=== PATIENT | female | born 1955 | race Caucasian/White ===

== ENCOUNTER → 2017-12-12 12:08 | Outpatient (CLI) | payer OTHER, SELFPAY | PROVIDERS: Visit Provider Internal Medicine | DX: Z78.0 Asymptomatic menopausal state (principal); Z13.820 Encounter for screening for osteoporosis | CPT/HCPCS: 77080 ==

== ENCOUNTER → 2018-01-06 10:37 | Outpatient (CLI) | payer OTHER, SELFPAY ==
--- NOTE | 2018-01-06 | DI.MG.S_ITS ---
BILATERAL DIGITAL SCREENING MAMMOGRAM 3D/2D WITH CAD: 01/06/2018 CLINICAL: Routine screening. Family history of breast cancer. Comparison is made to exams dated: 05/13/2016 mammogram, 02/21/2015 mammogram, and 02/01/2014 mammogram - [facility]. The tissue of both breasts is heterogeneously dense. This may lower the sensitivity of mammography. Current study was also evaluated with a Computer Aided Detection (CAD) system. No significant masses, calcifications, or other findings are seen in either breast. There has been no significant interval change. IMPRESSION: NEGATIVE There is no mammographic evidence of malignancy. A 1 year screening mammogram is recommended. This exam was interpreted at Station ID: [id number]. NOTE: For mammograms, a report in lay terms will be sent to the patient. Approximately 15% of breast malignancies will not be visualized mammographically. In the management of a palpable breast mass, a negative mammogram must not discourage biopsy of a clinically suspicious lesion. Electronically Signed By: Garth nava/kristie:01/06/2018 14:55:16 copy to: Mounika Pedro letter sent: Normal Exam ACR BI-RADS Category 1: Negative 3341F
== END ==
PROVIDERS: PCP Internal Medicine; Visit Provider Internal Medicine
DX: Z12.31 Encounter for screening mammogram for malignant neoplasm of breast (principal); Z80.3 Family history of malignant neoplasm of breast
CPT/HCPCS: 77063; 77067

== ENCOUNTER 2018-02-17 11:48 | Day surgery (SDC) | payer OTHER, SELFPAY ==
[2018-02-17 12:27] VITALS: BP 118/77; PULSE 70; RESP 16; TEMP 36.6; O2SAT 95; BMI 30.9
[2018-02-17] MEDS: SODIUM CHLORIDE 0.9% 1,000 ML 200 ML IV (12:52)
--- NOTE | 2018-02-17 13:56 | PM.HP.1 ---
History of Present Illness Date Patient Seen: 02/17/18 Time Patient Seen: 13:59 Chief complaint: [id number] SCREENING COLONOSCOPY Narrative: Very pleasant 63-year-old lady who is here for screening colonoscopy. She reports her 1st colonoscopy was 5 years ago and she was diagnosed with benign polyp at that time. She denies any new problems or symptoms related to the function of her GI tract. She reports she needs a colonoscopy as part of a health maintenance program. Patient History Medical History Asthma (Chronic 2007) Depression (Chronic) Hyperlipidemia (Chronic) Hypothyroidism (Chronic) Peptic ulcer disease (Chronic 2001) Postmenopausal HRT (hormone replacement therapy) (Chronic) Sleep apnea (Chronic 2013) Abnormal Pap smear of cervix (Resolved) Arm fracture (Resolved ~1969) Measles (Resolved 1959) Mumps (Resolved 1960) Shingles (Resolved 2005) Surgical History Anesthesia (Resolved) History of ovarian cystectomy (Resolved) Family & Social History Family History: Reviewed 02/17/18 by Alessia Roland MD Social History: household members spouse Tobacco & Substance use: Smoking Status Never smoker Meds Home Medications Medication Instructions Recorded Confirmed Type [Ferrasorb] 1 cap PO Q DAY #0 03/22/16 01/05/18 History cholecalciferol (vitamin D3) 4,000 PO #0 11/11/16 01/05/18 History [Vitamin D3] calcium lactate #0 01/13/17 01/05/18 History estradiol-norethindrone acet 1 tab PO QDAY #28 tab 05/26/17 01/05/18 Rx [Activella] albuterol sulfate [Ventolin HFA] 2 puff INH SEE INSTRUCTIONS PRN #1 07/07/17 01/05/18 Rx inh fluoxetine 20 mg PO Q DAY #90 cap 07/07/17 01/05/18 Rx liothyronine [Cytomel] 5 mcg PO QAM #0 07/07/17 01/05/18 History levothyroxine 100 mcg PO QAM #30 tab 09/12/17 01/05/18 Rx clotrimazole 1 % vaginal cream 1 applicator VAG BEDTIME #45 gram 01/05/18 Rx fluconazole 150 mg tablet 150 mg PO ONCE #3 tab 02/03/18 Rx Allergies Allergy/AdvReac Type Severity Reaction Status Date / Time Sulfa (Sulfonamide Allergy Severe RASH Verified 02/17/18 12:50 Antibiotics) [SULFA (SULFONAMIDE ANTIBIOTICS)] pravastatin [PRAVASTATIN] AdvReac Intermediate JOINT PAIN Verified 02/17/18 12:50 simvastatin [SIMVASTATIN] AdvReac Intermediate JOINT PAIN Verified 02/17/18 12:50 erythromycin base AdvReac Mild GI UPSET Verified 02/17/18 12:50 [ERYTHROMYCIN BASE] pneumococcal vaccine AdvReac Mild REDNESS Verified 02/17/18 12:50 [PNEUMOCOCCAL VACCINE] AND SWELLNG AT INJECTION SITE Review of Systems Review of Systems All systems reviewed & are unremarkable except as noted in HPI and below Exam Vital Signs (past 8 hours): - 02/17/18 12:27 Temperature 97.8 F Pulse Rate 70 Respiratory Rate 16 Blood Pressure 118/77 Pulse Oximetry 95 Oxygen Delivery Method Room Air Narrative Exam Narrative: Pleasant well-nourished well-developed lady in no distress HEENT: Equal round and reactive to light accommodation Lungs: Clear to auscultation bilaterally Heart: Regular rate and rhythm Abdomen: Soft, nontender, active bowel sounds Extremities: Warm well perfused Assessment & Plan Plan: Assessment/Plan Narrative: Very pleasant well-nourished and well-developed lady in no distress. We discussed risks and benefits of colonoscopy and the patient expressed desire to complete the procedure today
--- NOTE | 2018-02-17 14:02 | P.HP_ITS ---
History of Present Illness Date Patient Seen: 02/17/18 Time Patient Seen: 13:59 Chief complaint: [id number] SCREENING COLONOSCOPY Narrative: Very pleasant 63-year-old lady who is here for screening colonoscopy. She reports her 1st colonoscopy was 5 years ago and she was diagnosed with benign polyp at that time. She denies any new problems or symptoms related to the function of her GI tract. She reports she needs a colonoscopy as part of a health maintenance program. Patient History Medical History Asthma (Chronic 2007) Depression (Chronic) Hyperlipidemia (Chronic) Hypothyroidism (Chronic) Peptic ulcer disease (Chronic 2001) Postmenopausal HRT (hormone replacement therapy) (Chronic) Sleep apnea (Chronic 2013) Abnormal Pap smear of cervix (Resolved) Arm fracture (Resolved ~1969) Measles (Resolved 1959) Mumps (Resolved 1960) Shingles (Resolved 2005) Surgical History Anesthesia (Resolved) History of ovarian cystectomy (Resolved) Family & Social History Family History: Reviewed 02/17/18 by Alessia Roland MD Social History: household members spouse Tobacco & Substance use: Smoking Status Never smoker Meds Home Medications Medication Instructions Recorded Confirmed Type [Ferrasorb] 1 cap PO Q DAY #0 03/22/16 01/05/18 History cholecalciferol (vitamin D3) 4,000 PO #0 11/11/16 01/05/18 History [Vitamin D3] calcium lactate #0 01/13/17 01/05/18 History estradiol-norethindrone acet 1 tab PO QDAY #28 tab 05/26/17 01/05/18 Rx [Activella] albuterol sulfate [Ventolin HFA] 2 puff INH SEE INSTRUCTIONS PRN #1 07/07/17 Rx inh fluoxetine 20 mg PO Q DAY #90 cap 07/07/17 01/05/18 Rx liothyronine [Cytomel] 5 mcg PO QAM #0 07/07/17 01/05/18 History levothyroxine 100 mcg PO QAM #30 tab 09/12/17 01/05/18 Rx clotrimazole 1 % vaginal cream 1 applicator VAG BEDTIME #45 gram 01/05/18 Rx fluconazole 150 mg tablet 150 mg PO ONCE #3 tab 02/03/18 Rx Allergies Allergy/AdvReac Type Severity Reaction Status Date / Time Sulfa (Sulfonamide Allergy Severe RASH Verified 02/17/18 12:50 Antibiotics) [SULFA (SULFONAMIDE ANTIBIOTICS)] pravastatin [PRAVASTATIN] AdvReac Intermediate JOINT PAIN Verified 02/17/18 12: 50 simvastatin [SIMVASTATIN] AdvReac Intermediate JOINT PAIN Verified 02/17/18 12: 50 erythromycin base AdvReac Mild GI UPSET Verified 02/17/18 12:50 [ERYTHROMYCIN BASE] pneumococcal vaccine AdvReac Mild REDNESS Verified 02/17/18 12:50 [PNEUMOCOCCAL VACCINE] AND SWELLNG AT INJECTION SITE Review of Systems Review of Systems All systems reviewed & are unremarkable except as noted in HPI and below Exam Vital Signs (past 8 hours): - 02/17/18 12:27 Temperature 97.8 F Pulse Rate 70 Respiratory Rate 16 Blood Pressure 118/77 Pulse Oximetry 95 Oxygen Delivery Method Room Air Narrative Exam Narrative: Pleasant well-nourished well-developed lady in no distress HEENT: Equal round and reactive to light accommodation Lungs: Clear to auscultation bilaterally Heart: Regular rate and rhythm Abdomen: Soft, nontender, active bowel sounds Extremities: Warm well perfused Assessment & Plan Plan: Assessment/Plan Narrative: Very pleasant well-nourished and well-developed lady in no distress. We discussed risks and benefits of colonoscopy and the patient expressed desire to complete the procedure today
[2018-02-17] MEDS: MIDAZOLAM 5 MG/5 ML VIAL IV (14:21)
[2018-02-17] MEDS: fentaNYL 250 MCG/5 ML INJ IV (14:22)
--- NOTE | 2018-02-17 14:29 | PM.OP.1 ---
Operative Date/Time/Diagnoses Date of procedure: 02/17/18 Time of procedure: 14:29 Procedure & Clinicians Procedure: Colonoscopy to the cecum Same procedure as scheduled: Yes Indications: Last colonoscopy 5 years ago Surgeon: Alessia Roland Click Yes if Unassisted: Yes Anesthesia Type: Sedation (Versed 5 mg; fentanyl 150 mcg) Operative Notes Findings: 1. Excellent prep 2. No polyps or mass lesions 3. No AV malformations 4. Minimal diverticulosis limited to the sigmoid region 5. Normal mucosa throughout without evidence of inflammation 6. Grade 1-2 internal hemorrhoids Closure Type: not applicable Procedure in detail: After obtaining informed consent, the patient was brought to the GI suite and placed in the left lateral decubitus position on the examination table. After placement of appropriate monitors, the patient was given incremental doses of Versed and Fentanyl until an appropriate level of sedation was achieved. A time out was held per SCOAP protocol. A digital rectal examination was performed and did not reveal any masses or obstructing lesions. The colonoscope was gently passed into the patient's anus and the entire colon navigated to the level of the cecum with minimal difficulty. Once in the cecum, the scope was withdrawn being sure to go before and beyond all mucosal folds and prominences and get an excellent examination. The findings are noted above. At the level of the rectal vault, the scope was retroflexed and the internal anal canal was examined. The scope was straightened and air aspirated from the colon. The instrument was removed from the patient's body and the procedure was concluded. The patient was allowed to awaken from sedation without difficulty and taken to the post-anesthesia care unit in good condition. Total sedation time 24 min Total withdrawal time 8 min 14 sec Complications: none Condition: stable Disposition: PACU Plan for aftercare: 1. Discharge home 2. Plan for next colonoscopy in 5 years or as clinically indicated
[2018-02-17 14:34] VITALS: BP 105/59; PULSE 65; RESP 10; TEMP 36.3; O2SAT 95
[2018-02-17 14:51] VITALS: BP 125/76; PULSE 62; RESP 13; TEMP 36.3; O2SAT 98
== END 2018-02-17 15:25 | disposition home or self-care (01) ==
PROVIDERS: PCP Internal Medicine; Visit Provider Surgery
PROC: 0DJD8ZZ Inspection of Lower Intestinal Tract, Via Natural or Artificial Opening Endoscopic (ICD-10-PCS; CPT 45378; principal; 2018-02-17 13:00)
DX: Z12.11 Encounter for screening for malignant neoplasm of colon (principal); Z86.010 Personal history of colon polyps; K57.30 Diverticulosis of large intestine without perforation or abscess without bleeding; K64.1 Second degree hemorrhoids; G47.33 Obstructive sleep apnea (adult) (pediatric); J45.909 Unspecified asthma, uncomplicated
CPT/HCPCS: 45378; 99152; 99153; J2250; J3010

== ENCOUNTER 2018-05-12 03:40 | Emergency (ER) | payer OTHER, SELFPAY ==
[2018-05-12 03:47] VITALS: BP 145/92; PULSE 64; RESP 16; TEMP 36.6; O2SAT 99; BMI 30.9
[2018-05-12 03:56] VITALS: BP 145/92; PULSE 64; RESP 16; TEMP 36.6; O2SAT 99; BMI 30.9
--- NOTE | 2018-05-12 04:19 | ED_ITS ---
HPI - Eye Problem General Chief complaint: Eye Problems Stated complaint: left eye pain like something is in it Time Seen by Provider: 05/12/18 03:50 Source: patient and family Mode of arrival: ambulatory Limitations: no limitations History of Present Illness HPI Narrative: 63-year-old female nonsmoker presents with her with a chief complaint of a sudden onset left eye pain this morning. She denies any injury, recent illness, recent UV exposure, welding or grinding.She denies any visual disturbance, visual field cuts or other. No floaters, flashers or blurring. She does not use contacts. She had LASIK surgery over the summer down in [place]. She routinely uses saline drops as directed by her ophtho. The drops contain no Preservatives and she has had this type of reaction a few times before when using which she describes as old drops chief complaint: eye pain and eye redness Onset (ago): hour(s) Onset description: sudden Duration: constant Location: left eye Eye Symptoms: redness and pain Place: home Mechanism: none Severity: mild If Pain, Quality: burning and aching Associated symptoms: none Treatments Prior to Arrival: none Related Data Patient tetanus UTD: Yes Home Medications Medication Instructions Recorded Confirmed [Ferrasorb] 1 cap PO Q DAY #0 03/22/16 03/05/18 cholecalciferol (vitamin D3) 4,000 PO #0 11/11/16 03/05/18 [Vitamin D3] Previous Rx's Medication Instructions Recorded estradiol-norethindrone acet 1 tab PO QDAY #28 tab 05/26/17 [Activella] albuterol sulfate [Ventolin HFA] 2 puff INH SEE INSTRUCTIONS PRN #1 07/07/17 inh fluoxetine 20 mg PO Q DAY #90 cap 07/07/17 levothyroxine 100 mcg tablet 100 mcg PO QAM #30 tab 04/21/18 Allergies Allergy/AdvReac Type Severity Reaction Status Date / Time Sulfa (Sulfonamide Allergy Severe RASH Verified 03/27/18 11:47 Antibiotics) [SULFA (SULFONAMIDE ANTIBIOTICS)] pravastatin [PRAVASTATIN] AdvReac Intermediate JOINT PAIN Verified 03/27/18 11: 47 simvastatin [SIMVASTATIN] AdvReac Intermediate JOINT PAIN Verified 03/27/18 11: 47 erythromycin base AdvReac Mild GI UPSET Verified 03/27/18 11:47 [ERYTHROMYCIN BASE] pneumococcal vaccine AdvReac Mild REDNESS Verified 03/27/18 11:47 [PNEUMOCOCCAL VACCINE] AND SWELLNG AT INJECTION SITE Review of Systems Review of Systems All systems reviewed & are unremarkable except as noted in HPI and below Constitutional Denies chills, Denies fever(s), Denies lethargy and Denies weakness Eyes Denies change in vision, Denies eye discharge, Reports irritation, Denies loss of vision and Reports eye pain ENT Ears, Nose, Mouth, and Throat: Denies change in voice, Denies neck pain and Denies sore throat Cardiovascular Denies dyspnea and Denies dyspnea on exertion Respiratory Denies cough, Denies dyspnea, Denies dyspnea on exertion and Denies wheezing Gastrointestinal Gastrointestinal: Denies abdominal pain, Denies change in bowel habits, Denies diarrhea, Denies nausea and Denies vomiting Musculoskeletal Denies neck pain Neurologic Denies confusion, Denies loss of vision and Denies weakness Psychiatric Denies anxiety, Denies confusion, Denies depression, Denies homicidal ideation and Denies suicidal ideation Allergic/Immunologic Denies wheezing [facility] Medical History Asthma (Chronic 2007) Depression (Chronic) Hyperlipidemia (Chronic) Hypothyroidism (Chronic) Peptic ulcer disease (Chronic 2001) Postmenopausal HRT (hormone replacement therapy) (Chronic) Sleep apnea (Chronic 2013) Abnormal Pap smear of cervix (Resolved) Arm fracture (Resolved ~1970) Measles (Resolved 1959) Mumps (Resolved 1960) Shingles (Resolved 2005) Surgical History Anesthesia (Resolved) History of ovarian cystectomy (Resolved) Family History Brother Age: 62 Hypertension Brother Age: 64 Prostate cancer Father Hypertension High cholesterol Stroke Asthma Grandmother Pneumonia Mother Age: 92 Asthma Hyperlipidemia Lymphatic leukemia Cancer Grandfather Cancer Lung cancer Grandmother Heart disease Family/Other Prediabetes Grandfather No problems noted. Grandmother Heart disease Social History household members: spouse Smoking Status: Never smoker Exam Narrative Exam Narrative: GEN: AOx3 and in mild distress EYES: Pupils are equal, round, and reactive to light and accommodation. Extraoccular muscles are intact bilaterally. Mild injection in L eye. No obvious foreign body noted, upper lid everted. Viewed with fluorescein under UV lamp and no dye uptake noted. Pressures measured with a Chuy-Pen and note 20 mmHg. No abnormalities noted on fundoscoping. Visual acuity noted in nursing chart (20/25 OS, OD, OU) CHEST: Lungs are clear to auscultation bilaterally and free of wheezes, rales, or rhonchi. Heart rate is regular rhythm, there are no murmurs, clicks, rubs, or gallops. There is no chest wall tenderness. ABD: Abdomen is soft and nontender. There is no guarding or rebound. Bowel sounds are normal in all 4 quadrants. There is no mass or organomegaly. EXT: Full painless ROM of all extremities with no loss of sensation or strength. SKIN: Warm, pink, and dry. No erythema or rash Initial Vital Signs Initial Vital Signs: Vital Signs Temperature 97.8 F 05/12/18 03:47 Pulse Rate 64 05/12/18 03:47 Respiratory Rate 16 05/12/18 03:47 Blood Pressure 145/92 H 05/12/18 03:47 Pulse Oximetry 99 05/12/18 03:47 Course Vital Signs - 8 hr 05/12/18 03:47 05/12/18 03:56 Temperature 97.8 F 97.8 F Pulse Rate 64 64 Respiratory Rate 16 16 Blood Pressure 145/92 H 145/92 H Pulse Oximetry 99 99 Discharge Plan Departure Patient Disposition: Home Clinical Impression: Acute left eye pain, Acute eye pain Discharge Date/Time: 05/12/18 04:24 Instructions: DI for Eye Pain Activity Restrictions/Additional Instructions: *You have been diagnosed with [ acute L eye pain ] *What to do: *continue to take medications as directed *Follow up with your eye doctor later today, call for an appointment. Let them know you were seen in the Emergency Department and that we ask that you be seen in follow up *Return to ER if you should have any new, worsening or concerning symptoms Prescriptions: No Action [Ferrasorb] 1 cap PO Q DAY Qty: 0 RF: 0 cholecalciferol (vitamin D3) [Vitamin D3] 4,000 UNIT capsule 4,000 PO Qty: 0 RF: 0 estradiol-norethindrone acet [Activella] 1 MG/0.5 MG tablet 1 tab PO QDAY Qty: 28 RF: 5 albuterol sulfate [Ventolin HFA] 90 MCG/PUFF HFA aerosol inhaler 2 puff INH SEE INSTRUCTIONS PRNQty: 1 RF: 1 fluoxetine 20 MG capsule 20 mg PO Q DAY Qty: 90 RF: 3 levothyroxine 100 mcg tablet 100 mcg PO QAM Qty: 30 RF: 0
[2018-05-12] MEDS: PROPARACAINE 0.5% OPHTH SOL 1 DROPS EYE-LEFT (04:23)
== END 2018-05-12 04:24 | disposition home or self-care (01) ==
LOC: ED 04:23
PROVIDERS: Emergency Provider Emergency Medicine; PCP Internal Medicine
DX: H57.12 Ocular pain, left eye (principal)
CPT/HCPCS: 99283

== ENCOUNTER → 2018-09-09 14:28 | Outpatient (CLI) | payer OTHER, SELFPAY ==
[2018-09-09 15:30] LABS: Add Manual Diff / Slide Review NO; Basophils Absolute Auto 0 /uL (0-100); Basophils Percent Auto 0.5 % (0-2); Eosinophils Absolute Auto 100 /uL (0-450); Eosinophils Percent Auto 1.7 % (2-4); Hematocrit 41.6 % (36-46); Lymphocytes Absolute Auto 2500 /uL (1100-4500); Lymphocytes Percent Auto 45.6 % (25-40); Mean Corpuscular HGB Conc 33.7 % (30-36); Mean Corpuscular Hemoglobin 30.6 PG (26-34); Monocytes Absolute Auto 400 /uL (0-900); Monocytes Percent Auto 7.1 % (3-14); Neutrophils Absolute Auto 2500 /uL (1500-7000); Neutrophils Percent Auto 45.1 % (50-75); Platelet Count 332 X10^3/uL (150-400); Red Blood Cell Count 4.57 X10^6/uL (4.0-5.2); White Blood Cell Count 5.6 X10^3/uL (4.5-11.0)
[2018-09-09 15:58] LABS: HEMOLYSIS < 15 (0-50); Iron 87 ug/dL (37-170)
[2018-09-09 16:09] LABS: Percent Iron Saturation 26 % (15-50); Total Iron Binding Capacity 340 ug/dL (265-497); Transferrin 273 mg/dL (206-381)
[2018-09-09 16:10] LABS: Alanine Aminotransferase 63 IU/L (9-52); Albumin 4.5 g/dL (3.5-5.0); Albumin Globulin Ratio 1.4 (1.0-2.8); Alkaline Phosphatase 58 U/L (38-126); Aspartate Aminotransferase 39 IU/L (14-36); BUN Creatinine Ratio 21.3 (6-22); Bilirubin Total 0.8 mg/dL (0.2-1.3); Blood Urea Nitrogen 17 mg/dL (7-17); Calcium 9.2 mg/dL (8.4-10.2); Carbon Dioxide 29 mmol/L (22-32); Chloride 101 mmol/L (98-107); Cholesterol 213 mg/dL (140-199); Estimated Glomerular Filt Rate > 60.0 mL/min (>60); Globulin 3.3 g/dL (1.7-4.1); Glucose 83 mg/dL (80-110); HDL Cholesterol 53 mg/dL (40-60); HEMOLYSIS < 15 (0-50); LDL Cholesterol Calculated 137 mg/dL (<100); Magnesium 2.1 mg/dL (1.6-2.3); Potassium 4.4 mmol/L (3.4-5.1); Sodium 140 mmol/L (137-145); Total Protein 7.8 g/dL (6.3-8.2); Triglycerides 115 mg/dL (35-150)
[2018-09-09 16:17] LABS: Free T3, Triiodothyronine Free 3.16 pg/mL (2.77-5.27); Free T4, Direct Thyroxine 1.22 ng/dL (0.78-2.19)
[2018-09-09 16:28] LABS: Vitamin D 25 Hydroxy (D3) 45.1 ng/mL (30.0-100.0)
[2018-09-09 16:31] LABS: Thyroid Stimulating Hormone 0.46 uIU/mL (0.47-4.68)
== END ==
PROVIDERS: PCP Student in an Organized Health Care Education/Training Program; Visit Provider Student in an Organized Health Care Education/Training Program
DX: E03.9 Hypothyroidism, unspecified (principal); E78.2 Mixed hyperlipidemia; E55.9 Vitamin D deficiency, unspecified; R25.2 Cramp and spasm; E61.1 Iron deficiency
CPT/HCPCS: 36415; 80053; 80061; 82306; 83540; 83550; 83735; 84439; 84443; 84481; 85025

== ENCOUNTER → 2018-12-08 14:34 | Outpatient (CLI) | payer OTHER, SELFPAY ==
[2018-12-08 18:40] LABS: Rheumatoid Factor < 8.6 IU/mL (<12.0)
[2018-12-11 09:38] LABS: Antinuclear Antibodies by IFA NEGATIVE
== END ==
PROVIDERS: PCP Student in an Organized Health Care Education/Training Program; Visit Provider Optometrist
DX: H16.223 Keratoconjunctivitis sicca, not specified as Sjogren's, bilateral (principal)
CPT/HCPCS: 36415; 86038; 86235; 86430

== ENCOUNTER 2018-12-30 06:08 | Emergency (ER) | payer OTHER, SELFPAY ==
--- NOTE | 2018-12-30 06:09 | ED_ITS ---
HPI - General Adult General Stated complaint: EYE PAIN SINCE 3 AM Time Seen by Provider: 12/30/18 06:09 Source: patient Mode of arrival: ambulatory Limitations: no limitations History of Present Illness HPI narrative: Sixty 3-year-old male with a history of dry eyes. He is currently under the care of an project consultant. He is using multiple lubricating creams and ointments and drops at home. States this occasionally happens where she wakes up in the morning and cannot get her eyes open because of pain and irritation. She states this is what happened to her this morning. She states that all she needs is a couple drops of the ?numbing medicine ?to help with the symptoms that she should be ?good to go ? Related Data Home Medications Medication Instructions Recorded Confirmed [Ferrasorb] 1 cap PO Q DAY #0 03/22/16 10/13/18 cholecalciferol (vitamin D3) 4,000 PO #0 11/11/16 10/13/18 [Vitamin D3] ibuprofen 200 mg capsule 200 mg PO QID PRN 09/08/18 10/13/18 Previous Rx's Medication Instructions Recorded albuterol sulfate [Ventolin HFA] 2 puff INH SEE INSTRUCTIONS PRN #1 07/07/17 inh levothyroxine 100 mcg tablet 100 mcg PO QAM #30 tab 09/28/18 fluoxetine 20 mg capsule 20 mg PO DAILY #90 cap 10/12/18 lorazepam 0.5 mg tablet 0.5 mg PO BID-TID PRN #60 tab 10/13/18 Allergies Allergy/AdvReac Type Severity Reaction Status Date / Time Sulfa (Sulfonamide Allergy Severe RASH Verified 10/13/18 10:54 Antibiotics) [SULFA (SULFONAMIDE ANTIBIOTICS)] pravastatin [PRAVASTATIN] AdvReac Intermediate JOINT PAIN Verified 10/13/18 10:54 simvastatin [SIMVASTATIN] AdvReac Intermediate JOINT PAIN Verified 10/13/18 10:54 erythromycin base AdvReac Mild GI UPSET Verified 10/13/18 10:54 [ERYTHROMYCIN BASE] pneumococcal vaccine AdvReac Mild REDNESS Verified 10/13/18 10:54 [PNEUMOCOCCAL VACCINE] AND SWELLNG AT INJECTION SITE Review of Systems Constitutional Denies fever(s) Eyes Reports blurry vision, Denies eye discharge, Reports dry eyes, Reports irritation and Reports eye pain ENT Ears, Nose, Mouth, and Throat: Denies sore throat Hematologic/Lymphatic Denies easy bleeding and Denies easy bruising Allergic/Immunologic Denies urticaria PFSH Medical History Asthma (Chronic 2007) Depression (Chronic) Hyperlipidemia (Chronic) Hypothyroidism (Chronic) Peptic ulcer disease (Chronic 2001) Postmenopausal HRT (hormone replacement therapy) (Chronic) Sleep apnea (Chronic 2013) Abnormal Pap smear of cervix (Resolved) Arm fracture (Resolved ~1969) Measles (Resolved 1959) Mumps (Resolved 1960) Shingles (Resolved 2005) Family History Brother Age: 62 Hypertension Brother Age: 64 Prostate cancer Father Hypertension High cholesterol Stroke Asthma Grandmother Pneumonia Mother Age: 92 Asthma Hyperlipidemia Lymphatic leukemia Cancer Grandfather Cancer Lung cancer Grandmother Heart disease Family/Other Prediabetes Grandfather No problems noted. Grandmother Heart disease Social History household members: spouse Smoking Status: Former smoker Exam Initial Vital Signs Initial Vital Signs: Vital Signs Temperature 98.0 F 12/30/18 06:14 Pulse Rate 63 12/30/18 06:14 Respiratory Rate 18 12/30/18 06:14 Blood Pressure 195/84 H 12/30/18 06:14 Pulse Oximetry 98 12/30/18 06:14 Const General: cooperative and No acute distress Orientation: alert and awake HENMT Head: normal to inspection and normocephalic Eyes Other: Bilateral eyes with scleral injection, red conjunctiva without drainage. No surrounding skin changes. No uptake with fluorescein staining bilateral. Resp Effort & Inspection: normal respiratory effort Cardio Rate: regular rate Skin Lesions: no lesions Rashes: no rashes Neuro General: alert, awake and oriented x3 Course Vital Signs - 8 hr 12/30/18 06:14 Temperature 98.0 F Pulse Rate 63 Respiratory Rate 18 Blood Pressure [Right Arm] 195/84 H Pulse Oximetry 98 Medical Decision Making MDM Narrative Medical decision making narrative: Patient states that the pain in her eyes a secondary to the year today barraza. She does have foreign body sensation which she states there is nothing in her eye. She states this is just irritation from her dry eyes that occasionally happens. I did use the proparacaine drops which improved her symptoms tremendously. There is no signs of foreign body or corneal abrasions with fluorescein. She does have a project consultant that she sees on a regular basis. Will have her contact her project consultant for follow-up. She expressed understanding and agreement with plan. Discharge Plan Departure Patient Disposition: Home Clinical Impression: Bilateral dry eyes Instructions: DI for Eye Pain Activity Restrictions/Additional Instructions: I recommend you contact your project consultant later today for any further recommendations with regard to your dry eyes. Continue all of your medications as directed. Return to the emergency department for any new or worsening symptoms Prescriptions: No Action [Ferrasorb] 1 cap PO Q DAY Qty: 0 RF: 0 cholecalciferol (vitamin D3) [Vitamin D3] 4,000 UNIT capsule 4,000 PO Qty: 0 RF: 0 albuterol sulfate [Ventolin HFA] 90 MCG/PUFF HFA aerosol inhaler 2 puff INH SEE INSTRUCTIONS PRNQty: 1 RF: 1 levothyroxine 100 mcg tablet 100 mcg PO QAM Qty: 30 RF: 5 fluoxetine 20 mg capsule 20 mg PO DAILY Qty: 90 RF: 1 ibuprofen 200 mg capsule 200 mg PO QID PRNRF: 0 lorazepam 0.5 mg tablet 0.5 mg PO BID-TID PRN (Reason: anxiety) Qty: 60 RF: 0 Referrals: Sonu Albright MD [Primary Care Provider] -
[2018-12-30 06:14] VITALS: BP 195/84; PULSE 63; RESP 18; TEMP 36.7; O2SAT 98
[2018-12-30 06:31] VITALS: PULSE 63; RESP 18; TEMP 36.7; O2SAT 98
--- NOTE | 2018-12-30 06:34 | PC.NURSE ---
Unable to obtain visual acuity,she had been given alcaine BY prior to my exam and was very light sensitive.
== END 2018-12-30 06:44 | disposition home or self-care (01) ==
PROVIDERS: Emergency Provider Emergency Medicine; PCP Student in an Organized Health Care Education/Training Program
DX: H04.123 Dry eye syndrome of bilateral lacrimal glands (principal)
CPT/HCPCS: 99282

== ENCOUNTER → 2019-01-07 15:48 | Outpatient (CLI) | payer OTHER, SELFPAY ==
--- NOTE | 2019-01-07 | DI.MG.S_ITS ---
BILATERAL DIGITAL SCREENING MAMMOGRAM 3D/2D WITH CAD: 01/07/2019 CLINICAL: Routine screening. Family history of breast cancer. Comparison is made to exams dated: 01/06/2018 mammogram, 05/13/2016 mammogram, and 02/21/2015 mammogram - [facility]. The tissue of both breasts is heterogeneously dense. This may lower the sensitivity of mammography. Current study was also evaluated with a Computer Aided Detection (CAD) system. There is a mole marker on the right breast. There are mole markers on the left breast. No significant masses, calcifications, or other findings are seen in either breast. There has been no significant interval change. IMPRESSION: NEGATIVE There is no mammographic evidence of malignancy. A 1 year screening mammogram is recommended. This exam was interpreted at Station ID: [id number]. NOTE: For mammograms, a report in lay terms will be sent to the patient. Approximately 15% of breast malignancies will not be visualized mammographically. In the management of a palpable breast mass, a negative mammogram must not discourage biopsy of a clinically suspicious lesion. Electronically Signed By: Darwin foster/kristie:01/08/2019 07:24:17 copy to: Bassam Brooks letter sent: Normal Exam ACR BI-RADS Category 1: Negative 3341F
== END ==
PROVIDERS: PCP Student in an Organized Health Care Education/Training Program; Visit Provider Student in an Organized Health Care Education/Training Program
DX: Z12.31 Encounter for screening mammogram for malignant neoplasm of breast (principal); Z80.3 Family history of malignant neoplasm of breast
CPT/HCPCS: 77063; 77067

== ENCOUNTER → 2019-08-14 08:28 | Outpatient (CLI) | payer OTHER, SELFPAY ==
[2019-08-14 09:15] LABS: Influenza A - CEPHEID Flu A NEGATIVE (NEGATIVE); Influenza B - CEPHEID Flu B NEGATIVE (NEGATIVE)
== END ==
PROVIDERS: PCP Student in an Organized Health Care Education/Training Program; Visit Provider Physician Assistant
DX: R05 Cough (principal)
CPT/HCPCS: 87502

== ENCOUNTER → 2020-02-08 19:26 | Outpatient (ROUT) | payer OTHER, SELFPAY ==
[2020-02-08 20:32] LABS: Erythrocyte Sedimentation Rate 8 MM/HR (0-20)
[2020-02-08 20:35] LABS: C-Reactive Protein Quant < 0.5 mg/dL (<1.0); Rheumatoid Factor < 8.6 IU/mL (<12.0)
[2020-02-11 19:38] LABS: ANA Screen, IFA Negative (.)
[2020-02-11 21:11] LABS: CCP Antibodies IgG/IgA 8 units (0-19)
== END ==
PROVIDERS: PCP Student in an Organized Health Care Education/Training Program; Visit Provider Internal Medicine
DX: M35.00 Sjogren syndrome, unspecified (principal)
CPT/HCPCS: 85651; 86038; 86140; 86200; 86430

== ENCOUNTER → 2020-03-10 09:29 | Outpatient (CLI) | payer OTHER, SELFPAY ==
--- NOTE | 2020-03-10 | DI.RAD.S_ITS ---
PROCEDURE: XR HAND LT 2V INDICATIONS: Pain is greatest in Rt thumb base TECHNIQUE: 2 views of the hand(s) acquired. COMPARISON: None. FINDINGS: Bones: No fractures or dislocations. Carpal bones are normally aligned. No suspicious bony lesions. Overall mild degenerative osteoarthritis is present, less than that seen on the right. Soft tissues: No suspicious soft tissue calcifications. IMPRESSION: Mild distal interphalangeal degenerative osteoarthritis, no erosive arthritis is found. Mild degeneration at the base of the 1st metacarpal. Dictated by: Tl Moreau M.D. on 03/10/2020 at 10:30 Approved by: Tl Moreau M.D. on 03/10/2020 at 10:31
--- NOTE | 2020-03-10 | DI.RAD.S_ITS ---
PROCEDURE: XR HAND RT 2V INDICATIONS: Pain is greatest in Rt thumb base TECHNIQUE: 2 views of the hand(s) acquired. COMPARISON: None. FINDINGS: Bones: No fractures or dislocations. Mild osteoarthritis at the distal interphalangeal joints. Moderate degenerative osteoarthritis at the base of the 1st metacarpal. No erosive arthritis. Carpal bones are normally aligned. No suspicious bony lesions. Soft tissues: No suspicious soft tissue calcifications. IMPRESSION: Degenerative osteoarthritis is present over the right hand, mild at the distal interphalangeal joints and moderate at the base of the 1st metacarpal. Dictated by: lT Moreau M.D. on 03/10/2020 at 10:27 Approved by: Tl Moreau M.D. on 03/10/2020 at 10:29
== END ==
PROVIDERS: PCP Internal Medicine; Referring Provider Internal Medicine; Visit Provider Internal Medicine
DX: M79.644 Pain in right finger(s) (principal); M19.042 Primary osteoarthritis, left hand; M19.041 Primary osteoarthritis, right hand
CPT/HCPCS: 73120; 87070; 87205

== ENCOUNTER → 2020-04-08 08:12 | Outpatient (CLI) | payer OTHER, SELFPAY ==
--- NOTE | 2020-04-08 | DI.MG.S_ITS ---
BILATERAL DIGITAL SCREENING MAMMOGRAM 3D/2D WITH CAD: 04/08/2020 CLINICAL: Routine screening. Family history of breast cancer. Comparison is made to exams dated: 01/07/2019 mammogram, 01/06/2018 mammogram, and 05/13/2016 mammogram - [facility]. The tissue of both breasts is heterogeneously dense. This may lower the sensitivity of mammography. Current study was also evaluated with a Computer Aided Detection (CAD) system. No significant masses, calcifications, or other findings are seen in either breast. There has been no significant interval change. IMPRESSION: NEGATIVE There is no mammographic evidence of malignancy. A 1 year screening mammogram is recommended. This exam was interpreted at Station ID: [id number]. NOTE: For mammograms, a report in lay terms will be sent to the patient. Approximately 15% of breast malignancies will not be visualized mammographically. In the management of a palpable breast mass, a negative mammogram must not discourage biopsy of a clinically suspicious lesion. Electronically Signed By: Akin wilson/kristie:04/10/2020 07:57:28 copy to: Bassam Brooks letter sent: Normal Exam ACR BI-RADS Category 1: Negative 3341F
== END ==
PROVIDERS: PCP Internal Medicine; Referring Provider Internal Medicine; Visit Provider Internal Medicine
DX: Z12.31 Encounter for screening mammogram for malignant neoplasm of breast (principal); Z80.3 Family history of malignant neoplasm of breast
CPT/HCPCS: 77063; 77067

== ENCOUNTER → 2021-04-26 08:07 | Outpatient (CLI) | payer MEDICARE, OTHER, SELFPAY ==
--- NOTE | 2021-04-26 | DI.MG.S_ITS ---
BILATERAL DIGITAL SCREENING MAMMOGRAM 3D/2D WITH CAD: 04/26/2021 CLINICAL: Routine screening. Family history of breast cancer. Comparison is made to exams dated: 04/08/2020 mammogram, 01/07/2019 mammogram, and 01/06/2018 mammogram - [facility]. The tissue of both breasts is heterogeneously dense. This may lower the sensitivity of mammography. Current study was also evaluated with a Computer Aided Detection (CAD) system. No significant masses, calcifications, or other findings are seen in either breast. There has been no significant interval change. IMPRESSION: NEGATIVE There is no mammographic evidence of malignancy. A 1 year screening mammogram is recommended. This exam was interpreted at Station ID: [id number]. NOTE: For mammograms, a report in lay terms will be sent to the patient. Approximately 15% of breast malignancies will not be visualized mammographically. In the management of a palpable breast mass, a negative mammogram must not discourage biopsy of a clinically suspicious lesion. Electronically Signed By: Garrison villalba/kristie:04/26/2021 08:49:32 copy to: Bassam Brooks letter sent: Normal Exam ACR BI-RADS Category 1: Negative 3341F
== END ==
PROVIDERS: PCP Family Medicine; Referring Provider Family Medicine; Visit Provider Family Medicine
DX: Z12.31 Encounter for screening mammogram for malignant neoplasm of breast (principal); Z80.3 Family history of malignant neoplasm of breast
CPT/HCPCS: 77063; 77067

== ENCOUNTER 2021-06-02 07:15 | Emergency (ER) | payer MEDICARE, OTHER, SELFPAY ==
[2021-06-02 07:27] VITALS: BP 169/81; PULSE 75; RESP 18; TEMP 36.7; O2SAT 96; BMI 28.3
[2021-06-02] MEDS: PROPARACAINE 0.5% OPHTH SOL 1 DROPS EYE-BOTH (07:30)
--- NOTE | 2021-06-02 07:38 | ED.EYEPROB ---
HPI - Eye Problem General Chief complaint: Eye Problems Stated complaint: left eye pain Time Seen by Provider: 06/02/21 07:20 Source: patient Mode of arrival: Ambulatory History of Present Illness HPI Narrative: The patient is under ophthalmology care for dry eyes. She has chronic discomfort in her eyes, she currently uses Restasis and Celluvisc prescribed by Dr. Alicea as with [facility]. She woke this morning with her eyes dry, almost sealed shut. She has significant eye discomfort. This happens occasionally. She is being seen here previously and received relief with proparacaine. She has previously been on Xiidra drops. These are expensive, unfortunately her insurance company will not cover this medication. She felt that medication offered much greater relief. She is here now eye pain requesting numbing drops. She has no significant visual changes. Intra-ocular pressures are moderate, and she has never had issue with glaucoma. Pain is consistent with prior such exacerbations. She denies URI symptoms. She has no rhinorrhea, sore throat, cough or fever. Related Data Home Medications Medication Instructions Recorded Confirmed ibuprofen 200 mg capsule 200 mg PO QID PRN 09/08/18 08/14/19 lifitegrast 5 % eye drops in a EYE-BOTH DAILY each 02/19/19 08/14/19 dropperette (Xiidra) Previous Rx's Medication Instructions Recorded albuterol sulfate 90 mcg/actuation 2 puff INH SEE INSTRUCTIONS PRN #1 07/07/17 aerosol inhaler (Ventolin HFA) inh fluoxetine 20 mg capsule 20 mg PO DAILY #90 cap 05/18/19 levothyroxine 100 mcg tablet 100 mcg PO QAM #90 tab 08/17/19 Allergies Allergy/AdvReac Type Severity Reaction Status Date / Time Sulfa (Sulfonamide Allergy Severe RASH Verified 08/14/19 08:20 Antibiotics) [SULFA (SULFONAMIDE ANTIBIOTICS)] pravastatin [PRAVASTATIN] AdvReac Intermediate JOINT PAIN Verified 08/14/19 08:20 simvastatin [SIMVASTATIN] AdvReac Intermediate JOINT PAIN Verified 08/14/19 08:20 erythromycin base AdvReac Mild GI UPSET Verified 08/14/19 08:20 [ERYTHROMYCIN BASE] pneumococcal vaccine AdvReac Mild REDNESS Verified 08/14/19 08:20 [PNEUMOCOCCAL VACCINE] AND SWELLNG AT INJECTION SITE Review of Systems Review of Systems ROS Unobtainable: All systems reviewed & are unremarkable except as noted in HPI and below Patient History Medical History (Updated 06/02/21 @ 08:07 by Bassam Talley MD) Abnormal Pap smear of cervix Arm fracture (~1969) Asthma (2007) Depression Dry eyes Hyperlipidemia Hypothyroidism Measles (1959) Mumps (196) Obstructive sleep apnea (~2013) Peptic ulcer disease (2001) Postmenopausal HRT (hormone replacement therapy) Shingles (2005) Viral syndrome Surgical History Anesthesia History of ovarian cystectomy Family History Brother Age: 65 Hypertension Brother Age: 67 Prostate cancer Father Hypertension High cholesterol Stroke Asthma Grandmother Pneumonia Mother Age: 95 Asthma Hyperlipidemia Lymphatic leukemia Cancer Grandfather Cancer Lung cancer Grandmother Heart disease Family/Other Prediabetes Grandfather No problems noted. Grandmother Heart disease Social History household members: spouse Smoking Status: Former smoker Smoking Status: Former smoker alcohol intake frequency: a few times a month Substance Use Type: does not use Exam Initial Vital Signs Initial Vital Signs: Vital Signs Temperature 98.1 F 06/02/21 07:27 Pulse Rate 75 06/02/21 07:27 Respiratory Rate 18 06/02/21 07:27 Blood Pressure 169/81 H 06/02/21 07:27 Pulse Oximetry 96 06/02/21 07:27 Const General: cooperative and healthy appearing [facility] Head: normal to inspection, normocephalic and atraumatic Nose: external nose normal and mucous membranes and turbinates abnormal Face and sinus: normal facial exam and sinuses nontender Mouth: oral mucosae normal Eyes Periorbital: periorbital findings normal Eyelids: eyelids normal Conjunctivae: conjunctival abnormality bilaterally conjunctival injection; Negative for without discharge Sclera: sclerae normal Cornea: corneas normal Pupils: PERRL and pupil size on the right 4 and on the left 4 EOM: EOM intact bilaterally Direct ophthalmoscopy: fundi normal bilaterally and photophobia Other: Visual acuity: 20/25 OD, 20/20 OS, 20/20 OU. Neck Neck: normal visual inspection and No lymphadenopathy Course Orders Ordered: Discontinued Medications Acetaminophen (Acetaminophen 325 Mg Tablet) 650 mg PO NOW ONE Stop: 06/02/21 07:52 Last Admin: 06/02/21 07:54 Dose: 650 mg Documented by: Proparacaine HCl (Proparacaine 0.5% Ophth Gemma) 1 drops EYE-BOTH NOW ONE Stop: 06/02/21 07:27 Last Admin: 06/02/21 07:30 Dose: 1 drop Documented by: SUSAN Vital Signs Vital signs: Vital Signs - 8 hr 06/02/21 07:27 Temperature 98.1 F Pulse Rate 75 Respiratory Rate 18 Blood Pressure 169/81 H Pulse Oximetry 96 MDM - Eye Problem Medical Records Medical records narrative: The patient received significant relief with proparacaine. She is given Tylenol and warm compresses. She was discharged home feeling improved. She is advised to follow-up with her economic development manager. Discharge Plan Departure Patient Disposition: Home Clinical Impression: Eye pain Instructions: DI for Eye Pain Activity Restrictions/Additional Instructions: Your exam suggests viral conjunctivitis, or perhaps iritis. However, your medical history implies that the irritation I am seeing is associated with your chronic issue with dry eyes. Continue current medications as prescribed. I recommend you contact your economic development manager office this morning, in case there is emergency coverage. Otherwise, contact your economic development manager office on Friday morning. Return here if necessary. Prescriptions: No Action albuterol sulfate [Ventolin HFA] 90 MCG/PUFF HFA aerosol inhaler 2 puff INH SEE INSTRUCTIONS PRNQty: 1 1RF fluoxetine 20 mg capsule 20 mg PO DAILY Qty: 90 1RF levothyroxine 100 mcg tablet 100 mcg PO QAM Qty: 90 3RF ibuprofen 200 mg capsule 200 mg PO QID PRN0RF Xiidra 5 % dropperette EYE-BOTH DAILY 0RF Referrals: Paul Noe MD [Primary Care Provider] -
[2021-06-02] MEDS: ACETAMINOPHEN 325 MG TABLET 650 MG PO (07:54)
== END 2021-06-02 08:05 | disposition home or self-care (01) ==
PROVIDERS: Emergency Provider Emergency Medicine; PCP Family Medicine
DX: H57.13 Ocular pain, bilateral (principal); Z87.891 Personal history of nicotine dependence
CPT/HCPCS: 99282

== ENCOUNTER 2023-05-28 09:27 | Day surgery (SDC) | payer MEDICARE, OTHER, SELFPAY ==
--- NOTE | 2023-05-28 | PATH_ITS ---
[facility] Accession Number: [id number] No. of containers..01 Tissue . 01 Material submitted: . duodenum - DUODENUM BIOPSY . 01 Diagnosis: Duodenum, Biopsy: Duodenal mucosa with mildly increased intraepithelial lymphocytes and foveolar metaplasia; please see comment. [facility] 06/10/2023 1110 Local . 01 Comment: The histologic findings raise a differential diagnosis including peptic duodenitis, NSAID induced injury, and in the appropriate clinical and serological setting, celiac sprue. . 01 Electronically signed: . Delbert Morales MD, PhD, Pathologist NPI- [id number] . 01 Gross description: . DUODENUM BIOPSY: Received in formalin is 1 fragment(s) of santos, soft tissue measuring 0.4 x 0.2 x 0.1 cm submitted entirely in 1 cassette(s) /AAY 05/29/2023 0532 Local . 01 Pathologist provided ICD-10: D50.0, K29.80 . 01 CPT . 955190 Specimen Comment: A courtesy copy of this report has been sent to [phone] Performed at: 01 [facility] [address] [place] [address], [place], [place] [id number] MD Akin Arnett MD Phone: [phone]
[2023-05-28 09:53] VITALS: BMI 24.9
[2023-05-28 10:00] VITALS: BP 122/76; PULSE 69; RESP 16; TEMP 36.4; O2SAT 97
--- NOTE | 2023-05-28 10:09 | PM.PREOP ---
Pre-operative Note COVID-19 COVID-19 status: Negative Interval Note History & Physical reviewed/Exam performed by Physician: Yes Changes to H&P: No ASA Class (for procedural sedation): II
--- NOTE | 2023-05-28 10:09 | PM.OP.EC ---
Operative Date/Time/Diagnoses Date of procedure: 05/28/23 Pre-op diagnosis: See indication and findings Procedure & Clinicians Study performed: EGD and colonoscopy Indications: Iron deficiency anemia Surgeon: Deirdre Reynolds Procedure Notes Procedure in detail: After informed consent was obtained the patient was placed in the left lateral decubitus position. The video upper scope was placed into the oropharynx and with the patient's help swallowed into the esophagus. The esophagus stomach and duodenum were carefully examined. On withdrawal, retroflexed view the GE junction was performed. The scope was removed. The patient tolerated procedure well. Patient was then turned to the scope colonoscope substituted. The scope was placed in the rectum slowly advanced cecum. Preparation was good. On slow withdrawal mucosa was carefully examined. The scope was removed. The patient tolerated procedure well. Blood loss none Complications none Sedation mac Findings EGD 1. Normal esophagus 2. Normal stomach 3. Normal duodenal bulb and sweep. Biopsies taken to rule out celiac Colonoscopy 1. Normal colonoscopy to cecum I expect that her small bowel biopsies will be normal in which she she will need to be scheduled for a [facility] the of the office/endoscopy center. Follow-up colonoscopy would be in 10 years. She does not need follow-up EGD
[2023-05-28] MEDS: LACTATED RINGERS 1,000 ML 42 ML IV (10:21)
[2023-05-28 11:15] VITALS: BP 130/70; PULSE 69; RESP 10; TEMP 36.3; O2SAT 97
[2023-05-28 11:20] VITALS: BP 130/71; PULSE 70; RESP 12; O2SAT 98
[2023-05-28 11:26] VITALS: BP 120/66; PULSE 72; RESP 10; O2SAT 99
[2023-05-28 11:30] VITALS: BP 127/70; PULSE 67; RESP 14; O2SAT 99
[2023-05-28 11:50] VITALS: BP 136/91; PULSE 60; RESP 18; TEMP 36.4; O2SAT 97
== END 2023-05-28 12:03 | disposition home or self-care (01) ==
PROVIDERS: PCP Internal Medicine; Referring Provider Internal Medicine Gastroenterology; Visit Provider Internal Medicine Gastroenterology
PROC: 0DJ08ZZ Inspection of Upper Intestinal Tract, Via Natural or Artificial Opening Endoscopic (ICD-10-PCS; CPT 43235; principal; 2023-05-28 10:30)
PROC: 0DJD8ZZ Inspection of Lower Intestinal Tract, Via Natural or Artificial Opening Endoscopic (ICD-10-PCS; CPT 45378; 2023-05-28 10:30)
DX: D50.9 Iron deficiency anemia, unspecified (principal)
CPT/HCPCS: 45378; 43239; J2704

== ENCOUNTER → 2023-08-13 07:48 | Outpatient (CLI) | payer MEDICARE, OTHER, SELFPAY ==
--- NOTE | 2023-08-13 07:51 | DI.MG.S_ITS ---
BILATERAL DIGITAL SCREENING MAMMOGRAM 3D/2D WITH CAD: 08/13/2023 CLINICAL: Routine screening. Family history of breast cancer. Comparison is made to exams dated: 04/26/2021 mammogram, 04/08/2020 mammogram, and 01/07/2019 mammogram - [facility]. Both breasts are heterogeneously dense, which may obscure small masses (category c / 51-75% glandular tissue). Current study was also evaluated with a Computer Aided Detection (CAD) system. No significant masses, calcifications, or other findings are seen in either breast. There has been no significant interval change. IMPRESSION: NEGATIVE There is no mammographic evidence of malignancy. A 1 year screening mammogram is recommended. Based on the Tyrer Cuzick model (a risk assessment model) the patient's lifetime risk is 10.4% and her 10 year risk is 5.5%. According to the ACR, ACS, and NCCN guidelines, an annual breast MRI exam along with mammogram is recommended if the patient's lifetime risk is 20% or greater. This exam was interpreted at Station ID: [id number]. NOTE: For mammograms, a report in lay terms will be sent to the patient. Approximately 15% of breast malignancies will not be visualized mammographically. In the management of a palpable breast mass, a negative mammogram must not discourage biopsy of a clinically suspicious lesion. Electronically Signed By: Angelica gonzalez/kristie:08/13/2023 13:45:46 copy to: Bassam Brooks letter sent: Normal Exam ACR BI-RADS Category 1: Negative 3341F
== END ==
LOC: MAMMO 07:50
PROVIDERS: PCP Internal Medicine; Referring Provider Internal Medicine; Visit Provider Internal Medicine
DX: Z12.31 Encounter for screening mammogram for malignant neoplasm of breast (principal); Z80.3 Family history of malignant neoplasm of breast; R92.333 Mammographic heterogeneous density, bilateral breasts
CPT/HCPCS: 77063; 77067

== ENCOUNTER 2023-12-05 08:15 | Outpatient (RCR) | payer MEDICARE, OTHER, SELFPAY ==
--- NOTE | 2023-10-27 17:21 | PT.OIE ---
Current Diagnoses Urge incontinence (10/27/23) Mixed incontinence (10/27/23) Unspecified urinary incontinence (10/27/23) Past Medical History (Last Updated 06/02/21 @ 08:07 by Bassam Talley MD) Abnormal Pap smear of cervix Arm fracture (~1969) Asthma (2008) Depression Dry eyes Hyperlipidemia Hypothyroidism Measles (1959) Mumps (1960) Obstructive sleep apnea (~2013) Peptic ulcer disease (2001) Postmenopausal HRT (hormone replacement therapy) Shingles (2005) Viral syndrome Past Surgical History (Last Reviewed 06/02/21 @ 08:07 by Bassam Talley MD) Anesthesia History of ovarian cystectomy Visit Care Team Role Provider Type Nena Mora MD Attending Provider Non-Staff Family Provider Primary Care Provider Referring Provider Specialty: Pediatrics Address: [address] [place] [address], [facility] Email: Physical Therapy Initial Evaluation PT-OP-A Visit Information Start: 10/23/23 17:13 Freq: Status: Active Protocol: Document 10/27/23 08:15 LRN (Rec: 10/27/23 09:02 LRN [id number]) Out-Patient Physical Therapy Visit Information Visit Information Visit Type Initial Evaluation Visit Start Time 08:15 Visit Stop Time 08:55 Visit Number 1 Evaluation Information Evaluation Date 10/27/23 Precautions Precautions PMH per intake form: Mild arthritis (post-menopausal), 2006-Ovarian Cyst removed, 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 PT-OP-B Current Condition Start: 10/23/23 17:13 Freq: Status: Active Protocol: Document 10/27/23 08:15 LRN (Rec: 10/27/23 09:02 LRN [id number]) Current Condition History of Current Condition Onset Date 01/19/2020 Current Complaints Urinary leakage w/strong urge & moisture p dancing, bowel incont long walk History of Current Condition Pt reports urinary leakage that has gradually worsened over the last year or two. She is having urinary incontinence with a strong urge, and notices moisture after dancing (10 hrs/wk, 5x/ wk). She has bowel incontinence with a long walk, especially if had coffee. Urinary leakage after toileting with urinary leakage walking out of bathroom. Prior Treatments and Tests None Developmental History Developmental History Pt reports G1, P1 vaginal delivery of daughter pulled out with a vacuum, possible tearing, but not certain. Treatment Goals Patient/Caregiver Goals Pt goal is to have a HEP to take care of the problem because she feels it is a prison thing. - no longer have incontinence and urinary leakage. - no moisture with leakage. - no leakage with strong urge. 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 L hip pain that wakes her up at night. R hip pain sometimes. PT-OP-C Subjective Start: 10/23/23 17:13 Freq: Status: Active Protocol: Document 10/27/23 08:15 LRN (Rec: 10/27/23 09:02 LRN [id number]) Patient Questionnaires Pelvic Pain and Urgency/Frequency Patient Symptom Scale Pelvic Pain Score 8 PT-OP-I Pelvic Floor Start: 10/23/23 17:13 Freq: Status: Active Protocol: Document 10/27/23 08:15 LRN (Rec: 10/27/23 09:02 LRN [id number]) Pelvic Floor Assessment Urine Pelvic Floor Surgery No Urinary Symptoms Urge Sensation Leakage Size Small Leaks Per Day 3-5 Voiding Frequency 7-10 Nocturia 2-3 Pads Used In 24 Hours 1 Urine Pad Type Panty Liner Bowel Bowel Surgery No Bowel Symptoms Fecal Leakage Other Bowel Symptoms Fecal leakage on long walks, especailly if drank coffee. Bowel Movement Frequency 3-5/day [place] Stool Chart Type 1-7 4 Pelvic Clock Pelvic Clock 12-3 Tightness Pelvic Clock 3-6 Tightness Pelvic Clock 6-9 Tightness Pelvic Clock 9-12 Tightness Prolapse Cystocele Grade 2 Perineal Descent Resting Absent Bearing Present Contraction Ability Manual Muscle Testing Left 2 Manual Muscle Testing Right 2 Manual Muscle Testing Anterior 2 Manual Muscle Testing Posterior 2 Muscle Endurance (Seconds) 8 Number of Quick Contractions In 10 3 Seconds Comments Pelvic Floor Comments Pt uses all substitute ms to perform a Kegel. PT-OP-J Posture/Palpation/Skin Start: 10/23/23 17:13 Freq: Status: Active Protocol: Document 10/27/23 08:15 LRN (Rec: 10/27/23 09:02 LRN [id number]) Posture Evaluation Position Standing Head/C-Spine Posture Forward Head L-Spine Posture Increased Lordosis Ankle/Foot Posture (L) Pronated,(R) Pronated Comments Posture Comments Ribs anterior from midline. PT-OP-K Range of Motion Start: 10/23/23 17:13 Freq: Status: Active Protocol: Document 10/27/23 08:15 LRN (Rec: 10/27/23 09:02 LRN [id number]) Lumbar Spine Range of Motion Lumbar Spine Active Degrees Testing Position Standing Flexion 93 Extension 20 Rotation Left 45 Rotation Right 35 Lateral Flexion Left 15 Lateral Flexion Right 12 ROM Limitations Soft Tissue Tightness Hip Goniometric Range of Motion Hip Right Passive Testing Position Supine Internal Rotation 25 External Rotation 65 Left Passive Testing Position Supine Internal Rotation 30 External Rotation 45 PT-OP-M Strength Start: 10/23/23 17:13 Freq: Status: Active Protocol: Document 10/27/23 08:15 LRN (Rec: 10/27/23 09:02 LRN [id number]) Trunk Strength Trunk Manual Muscle Testing Core Stabilization 5/5 Hip Strength Hip Manual Muscle Testing Right Extension (S1) 4+ Good+ Comments Generally 5/5, except as indicated above. Left Comments Generally 5/5 PT-OP-Q Treatments Start: 10/23/23 17:13 Freq: Status: Active Protocol: Document 10/27/23 08:15 LRN (Rec: 10/27/23 09:02 LRN [id number]) Therapeutic Exercises Supine Exercises Deep Breathing Supine Exercise Name Deep Breathing. Reps/Minutes 2' Comments Cued to slow breathing for 5-6 sec breath. Kegel isolated Supine Exercise Name Kegel ex in isolation of substitute muscles Reps/Minutes 3' Comments Pt cued to relax abdomen, gluteals and hip AD's. Sitting Exercises Deep Breathing Sitting Exercise Name Deep Breathing review (for same mechanics as in supine). Reps/Minutes 1' Comments Cued to slow breathing for 5-6 sec breath. Self-Care/Home Management Treatment Education Patient Education Home Exercise Program Other Education Discussed results of evaluation, attendance compliance, goals, and plan of care (POC). Pt agreeable to attendance compliance, goals and POC. Pt educated in use of Bladder/ Bowel Diary and I/S in tracking for 1 wk or until return to therapy. Brief education in Bladder retraining/Urge deference techique. Activities Self-Care/Home Management Activities Issued & reviewed HEP: Bladder retraining/Urge deference techique. PT-OP-T Assessment and Plan Start: 10/23/23 17:13 Freq: Status: Active Protocol: Document 10/27/23 08:15 LRN (Rec: 10/27/23 09:02 LRN [id number]) Physical Therapy Assessment Rehab Potential Rehabilitation Potential Good Evaluation Complexity Number of Personal Factors/Comorbidities 1-2 Number of Body Systems Impaired 4 or More Clinical Presentation at Evaluation Evolving Impairments Impairments Activity Tolerance,Posture,ROM ,Strength,Transfers Other Impairments Poor core pressure management. Goals Three Impairment Fecal incontinence with a long walk, especially if having coffee. Short Term Goal (STG) Pt will be educated in PF contractions in isolation of substitute muscles, and in proper vulvar/genital care. STG Duration 6 wks-12/08/23 Press Writer Goal (LTG) Improve pt's bowel voiding habits, core pressure managent , and PF strength with pt able to eliminate fecal incontinence with long walks. LTG Duration 12 wks-01/16/24 Two Impairment Urinary incontinence with a strong urge and after urinating Impairment Urinary leakage walking out of bathroom and Urinary moisture after dancing. Short Term Goal (STG) Improve PF muscle tone and strength with pt able to no longer have urinary leakage with a strong urge and while walking out of the bathroom after urinating. 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 LTG Duration 12 wks-01/16/24 One Impairment Pt lacks appropriate self care HEP Short Term Goal (STG) Education in proper methods for transfer with coordination of breathing and appropriate core pressure managment. STG Duration 6 wks-12/08/23 Press Writer Goal (LTG) Pt will be independent with a self care HEP of PF/R hip ext strengthening and hip ROM (R>L IR, L>R ER) exercises . LTG Duration 12 wks-01/16/24 Assessment Summary Assessment Pt is a 68 yo female who presents with mixed urinary incontinence and fecal leakage due to PF tightness with poor ability to relax her PF after a contraction and poor contraction strength because of tightness, mild cystocele, poor core pressure management , decreased hip/trunk mobility (IR R>L, ER L>R, trunk rot L) , R hip ext strength and posture changes. She denies internal tenderness of PF, although when asked her response is not really. No tenderness is noted with general palpation externally around the anal region. Internal anal assessment will be performed at the next session. The pt will benefit from skilled physical therapy, although due to her active lifestyle and dancing workout regime, her ability to regain continence may be proloned. Physical Therapy Plan Frequency and Duration Frequency of Treatment 1x/Week Duration of treatment (weeks) 12 Plan of Care Start Date 10/27/23 Plan of Care End Date 01/16/24 Therapeutic Interventions Therapeutic Interventions Coordination Training,Home Exercise Program,Manual Therapy,Neuromuscular Re- education,Self-Care/Home Management,Soft Tissue Mobilization,Therapeutic Activities,Therapeutic Exercises Modalities Biofeedback,Electric Stimulation Next Visit Focus/Plan Next Note Type Treatment Note Next Visit Plan POC: PF tightness w/mixed urinary incontinence & Fecal incontinence with long walks after coffee. Next: Anal assessment. Assess bladder diary and bowel involvement with recommendations as appropriate . Vemg assessment. PF stretching (with ex and if needed-wand), awareness training to relax PF, and relaxation techniques, and posture education. Education in proper methods for transfer with coordination of breathing. Manual therapy for PF stretching. HEP for PF relaxation after contractions, Hip stretch (IR R>L, ER L>R, trunk rot L), R hip ext strengthening.
--- NOTE | 2023-11-03 09:35 | PT.OTN ---
Current Diagnoses Urge incontinence (11/03/23) Mixed incontinence (11/03/23) Unspecified urinary incontinence (11/03/23) Physical Therapy Treatment Note PT-OP-A Visit Information Start: 10/23/23 17:13 Freq: Status: Active Protocol: Document 11/03/23 08:20 LRN (Rec: 11/03/23 09:35 LRN [id number]) Out-Patient Physical Therapy Visit Information Visit Information Visit Type Treatment Note Visit Note wgt ~162# Visit Start Time 08:20 Visit Stop Time 09:05 Visit Number 2 Evaluation Information Evaluation Date 10/27/23 Precautions Precautions PMH per intake form: Mild arthritis (post-menopausal), 2006-Ovarian Cyst removed, 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 PT-OP-B Current Condition Start: 10/23/23 17:13 Freq: Status: Active Protocol: Document 10/27/23 08:15 LRN (Rec: 10/27/23 09:02 LRN [id number]) Current Condition History of Current Condition Onset Date 01/19/2020 Current Complaints Urinary leakage w/strong urge & moisture p dancing, bowel incont long walk History of Current Condition Pt reports urinary leakage that has gradually worsened over the last year or two. She is having urinary incontinence with a strong urge, and notices moisture after dancing (10 hrs/wk, 5x/ wk). She has bowel incontinence with a long walk, especially if had coffee. Urinary leakage after toileting with urinary leakage walking out of bathroom. Prior Treatments and Tests None Developmental History Developmental History Pt reports G1, P1 vaginal delivery of daughter pulled out with a vacuum, possible tearing, but not certain. Treatment Goals Patient/Caregiver Goals Pt goal is to have a HEP to take care of the problem because she feels it is a terminal superintendent thing. - no longer have incontinence and urinary leakage. - no moisture with leakage. - no leakage with strong urge. 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 L hip pain that wakes her up at night. R hip pain sometimes. PT-OP-C Subjective Start: 10/23/23 17:13 Freq: Status: Active Protocol: Document 11/03/23 08:20 LRN (Rec: 11/03/23 09:35 LRN [id number]) OP-PT Subjective Patient Comments Patient Comments States she doesn't leak much and has worn pads. In [place] diagnosed with gluten allergy with biopsy of Small bowels, since then her BM's are soft when off gluten. Some leakage, but most concern is bowel leakage. PT-OP-I Pelvic Floor Start: 10/23/23 17:13 Freq: Status: Active Protocol: Document 10/27/23 08:15 LRN (Rec: 10/27/23 09:02 LRN [id number]) Pelvic Floor Assessment Urine Pelvic Floor Surgery No Urinary Symptoms Urge Sensation Leakage Size Small Leaks Per Day 3-5 Voiding Frequency 7-10 Nocturia 2-3 Pads Used In 24 Hours 1 Urine Pad Type Panty Liner Bowel Bowel Surgery No Bowel Symptoms Fecal Leakage Other Bowel Symptoms Fecal leakage on long walks, especailly if drank coffee. Bowel Movement Frequency 3-5/day [place] Stool Chart Type 1-7 4 Pelvic Clock Pelvic Clock 12-3 Tightness Pelvic Clock 3-6 Tightness Pelvic Clock 6-9 Tightness Pelvic Clock 9-12 Tightness Prolapse Cystocele Grade 2 Perineal Descent Resting Absent Bearing Present Contraction Ability Manual Muscle Testing Left 2 Manual Muscle Testing Right 2 Manual Muscle Testing Anterior 2 Manual Muscle Testing Posterior 2 Muscle Endurance (Seconds) 8 Number of Quick Contractions In 10 3 Seconds Comments Pelvic Floor Comments Pt uses all substitute ms to perform a Kegel. PT-OP-J Posture/Palpation/Skin Start: 10/23/23 17:13 Freq: Status: Active Protocol: Document 10/27/23 08:15 LRN (Rec: 10/27/23 09:02 LRN [id number]) Posture Evaluation Position Standing Head/C-Spine Posture Forward Head L-Spine Posture Increased Lordosis Ankle/Foot Posture (L) Pronated,(R) Pronated Comments Posture Comments Ribs anterior from midline. PT-OP-K Range of Motion Start: 10/23/23 17:13 Freq: Status: Active Protocol: Document 10/27/23 08:15 LRN (Rec: 10/27/23 09:02 LRN [id number]) Lumbar Spine Range of Motion Lumbar Spine Active Degrees Testing Position Standing Flexion 93 Extension 20 Rotation Left 45 Rotation Right 35 Lateral Flexion Left 15 Lateral Flexion Right 12 ROM Limitations Soft Tissue Tightness Hip Goniometric Range of Motion Hip Right Passive Testing Position Supine Internal Rotation 25 External Rotation 65 Left Passive Testing Position Supine Internal Rotation 30 External Rotation 45 PT-OP-M Strength Start: 10/23/23 17:13 Freq: Status: Active Protocol: Document 10/27/23 08:15 LRN (Rec: 10/27/23 09:02 LRN [id number]) Trunk Strength Trunk Manual Muscle Testing Core Stabilization 5/5 Hip Strength Hip Manual Muscle Testing Right Extension (S1) 4+ Good+ Comments Generally 5/5, except as indicated above. Left Comments Generally 5/5 PT-OP-Q Treatments Start: 10/23/23 17:13 Freq: Status: Active Protocol: Document 11/03/23 08:20 LRN (Rec: 11/03/23 09:35 LRN [id number]) Therapeutic Exercises Supine Exercises Deep Breathing Supine Exercise Name Deep Breathing with v cuing and placment of pt's hands on chest:abdomen Reps/Minutes 6' Comments Extra time to chg pt's breath pattern of 2in:6out to 6in: 6out. Kegel isolated Supine Exercise Name Training quick & endurance Kegel ex in isolation of substitute muscles Reps/Minutes 9' Comments Pt cued to relax abdomen, gluteals and hip AD's. Therapeutic Activity Therapeutic Activity Review of bladder diary Name Training for daily fluid intake, incr in fiber/vegs, & for voiding Reps/Minutes 28 Comments Fluid intake: amount, types, timing for AM vs PM. Voiding: urinary and bowel, and frequency of voiding. Self-Care/Home Management Treatment Education Patient Education Home Exercise Program Activities Self-Care/Home Management Activities Issued handouts for Bowel Program, Foods & Beverages, and Quick/Endurance Kegels. PT-OP-T Assessment and Plan Start: 10/23/23 17:13 Freq: Status: Active Protocol: Document 11/03/23 08:20 LRN (Rec: 11/03/23 09:35 LRN [id number]) Physical Therapy Assessment Goals Three Impairment Fecal incontinence with a long walk, especially if having coffee. Short Term Goal (STG) Pt will be educated in PF contractions in isolation of substitute muscles, and in proper vulvar/genital care. STG Duration 6 wks-12/08/23 Detention Goal (LTG) Improve pt's bowel voiding habits, core pressure managent , and PF strength with pt able to eliminate fecal incontinence with long walks. LTG Duration 12 wks-01/16/24 Two Impairment Urinary incontinence with a strong urge and after urinating Impairment Urinary leakage walking out of bathroom and Urinary moisture after dancing. Short Term Goal (STG) Improve PF muscle tone and strength with pt able to no longer have urinary leakage with a strong urge and while walking out of the bathroom after urinating. 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 LTG Duration 12 wks-01/16/24 One Impairment Pt lacks appropriate self care HEP Short Term Goal (STG) Education in proper methods for transfer with coordination of breathing and appropriate core pressure managment. STG Duration 6 wks-12/08/23 Detention Goal (LTG) Pt will be independent with a self care HEP of PF/R hip ext strengthening and hip ROM (R>L IR, L>R ER) exercises . 11/03/23: Kegels long and endurance ex. LTG Duration 12 wks-01/16/24 progressed 11/03/23 Assessment Summary Assessment Pt is a 68 yo female with mixed urinary incontinence and fecal leakage due to PF tightness (no external tenderness) with poor ability to relax her PF after a contraction and poor contraction strength because of tightness, mild cystocele, poor core pressure management, decreased hip/trunk mobility (IR R>L, ER L>R, trunk rot L), R hip ext strength and posture changes. Deep breathing pattern much improved after training. Today pt has many comments. Increased urinary and BM onset noted after caffenated drinks (Spark & coffee), otherwise urinary voiding is ~every 2-3 hrs and BM's mostly type 4, but reportedly small. Review of her bladder diary resulted in extended conversation during education/training regarding fluids and intake pattern, diet & BM voiding pattern. Pt very clinical with ex's, timing them on her watch. Physical Therapy Plan Frequency and Duration Frequency of Treatment 1x/Week Duration of treatment (weeks) 12 Plan of Care Start Date 10/27/23 Plan of Care End Date 01/16/24 Next Visit Focus/Plan Next Note Type Treatment Note Next Visit Plan Next: Anal assessment. Assess bladder diary and bowel involvement with recommendations as appropriate . Vemg assessment. PF stretching (with ex and if needed-wand), awareness training to relax PF, and relaxation techniques, and posture education. Education in proper methods for transfer with coordination of breathing. Manual therapy for PF stretching. HEP for PF relaxation after contractions, Hip stretch (IR R>L, ER L>R, trunk rot L), R hip ext strengthening. POC: PF tightness w/mixed urinary incontinence & Fecal incontinence with long walks after coffee.
--- NOTE | 2023-11-14 17:08 | PT.OTN ---
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 PT-OP-B Current Condition Start: 10/23/23 17:13 Freq: Status: Active Protocol: Document 10/27/23 08:15 LRN (Rec: 10/27/23 09:02 LRN [id number]) Current Condition History of Current Condition Onset Date 01/19/2020 Current Complaints Urinary leakage w/strong urge & moisture p dancing, bowel incont long walk History of Current Condition Pt reports urinary leakage that has gradually worsened over the last year or two. She is having urinary incontinence with a strong urge, and notices moisture after dancing (10 hrs/wk, 5x/ wk). She has bowel incontinence with a long walk, especially if had coffee. Urinary leakage after toileting with urinary leakage walking out of bathroom. Prior Treatments and Tests None Developmental History Developmental History Pt reports G1, P1 vaginal delivery of daughter pulled out with a vacuum, possible tearing, but not certain. Treatment Goals Patient/Caregiver Goals Pt goal is to have a HEP to take care of the problem because she feels it is a mcc thing. - no longer have incontinence and urinary leakage. - no moisture with leakage. - no leakage with strong urge. 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 L hip pain that wakes her up at night. R hip pain sometimes. PT-OP-C Subjective Start: 10/23/23 17:13 Freq: Status: Active Protocol: Document 11/14/23 08:15 LRN (Rec: 11/14/23 09:05 LRN [id number]) OP-PT Subjective Patient Comments Patient Comments L hip is very tight. Didn't do a 2nd bladder diary. Asks doing Kegels the longer ones are difficult to get through and is asking if she can do a bridge with them. States her fecal leakage is that she can 't get to bathroom in time and soft mush BM's leak out. PT-OP-I Pelvic Floor Start: 10/23/23 17:13 Freq: Status: Active Protocol: Document 11/14/23 08:15 LRN (Rec: 11/14/23 09:05 LRN [id number]) Pelvic Floor Assessment Comments Pelvic Floor Comments Anal assessment R sidelie: Sphincter ms is 5/5. Posterior PF 1/5 (in sidelie). Vaginal PF assessment: Deferred due to small white chunks in vaginal region. Pt referred back to physician for assessment of discharge. PT-OP-J Posture/Palpation/Skin Start: 10/23/23 17:13 Freq: Status: Active Protocol: Document 10/27/23 08:15 LRN (Rec: 10/27/23 09:02 LRN [id number]) Posture Evaluation Position Standing Head/C-Spine Posture Forward Head L-Spine Posture Increased Lordosis Ankle/Foot Posture (L) Pronated,(R) Pronated Comments Posture Comments Ribs anterior from midline. PT-OP-K Range of Motion Start: 10/23/23 17:13 Freq: Status: Active Protocol: Document 10/27/23 08:15 LRN (Rec: 10/27/23 09:02 LRN [id number]) Lumbar Spine Range of Motion Lumbar Spine Active Degrees Testing Position Standing Flexion 93 Extension 20 Rotation Left 45 Rotation Right 35 Lateral Flexion Left 15 Lateral Flexion Right 12 ROM Limitations Soft Tissue Tightness Hip Goniometric Range of Motion Hip Right Passive Testing Position Supine Internal Rotation 25 External Rotation 65 Left Passive Testing Position Supine Internal Rotation 30 External Rotation 45 PT-OP-M Strength Start: 10/23/23 17:13 Freq: Status: Active Protocol: Document 10/27/23 08:15 LRN (Rec: 10/27/23 09:02 LRN [id number]) Trunk Strength Trunk Manual Muscle Testing Core Stabilization 5/5 Hip Strength Hip Manual Muscle Testing Right Extension (S1) 4+ Good+ Comments Generally 5/5, except as indicated above. Left Comments Generally 5/5 PT-OP-Q Treatments Start: 10/23/23 17:13 Freq: Status: Active Protocol: Document 11/14/23 08:15 LRN (Rec: 11/14/23 09:05 LRN [id number]) Therapeutic Exercises Supine Exercises Happy Baby Pose Supine Exercise Name HB w/breathwork-relax Plate Cleaner PF. Reps/Minutes 10' Comments Much v cuing and phys cuing to get posterior PF to relax. Deep Breathing Supine Exercise Name Deep Breathing with TA awareness training Reps/Minutes 10' Comments 6 sec in/out breaths, w/pt cued to focus on abdominal awareness Kegel isolated Supine Exercise Name Training quick & endurance Kegel ex in isolation of substitute muscles Reps/Minutes 5' Comments Pt cued to relax abdomen, gluteals and hip AD's. Therapeutic Activity Therapeutic Activity Posture training Name Postural training and for self assessment of posture in standing &agst wall Reps/Minutes 3' Comments Pt able to identify ASIS and SIJ to look in mirror for alignment. She was better at identifying neutral pelvis leaning against wall. Manual Therapy Treatment Soft Tissue Mobilization Plate Cleaner PF Body Location Plate Cleaner PF Mobilization Type Sustained Pressure Intensity/Depth Superficial Body Position Sidelie Comments Internal gentle stretch. Assessment of PF strength performed. PT-OP-T Assessment and Plan Start: 10/23/23 17:13 Freq: Status: Active Protocol: Document 11/14/23 08:15 LRN (Rec: 11/14/23 09:05 LRN [id number]) Physical Therapy Assessment Goals Three Impairment Fecal incontinence with a long walk, especially if having coffee. Short Term Goal (STG) Pt will be educated in PF contractions in isolation of substitute muscles, and in proper vulvar/genital care. STG Duration 6 wks-12/08/23 Mcfp Goal (LTG) Improve pt's bowel voiding habits, core pressure managent , and PF strength with pt able to eliminate fecal incontinence with long walks. LTG Duration 12 wks-01/16/24 Two Impairment Urinary incontinence with a strong urge and after urinating Impairment Urinary leakage walking out of bathroom and Urinary moisture after dancing. Short Term Goal (STG) Improve PF muscle tone and strength with pt able to no longer have urinary leakage with a strong urge and while walking out of the bathroom after urinating. 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 LTG Duration 12 wks-01/16/24 One Impairment Pt lacks appropriate self care HEP Short Term Goal (STG) Education in proper methods for transfer with coordination of breathing and appropriate core pressure managment. STG Duration 6 wks-12/08/23 Adapted Physical Education Specialist Goal (LTG) Pt will be independent with a self care HEP of PF/R hip ext strengthening and hip ROM (R>L IR, L>R ER) exercises . 11/03/23: Kegels long and endurance ex. LTG Duration 12 wks-01/16/24 progressed 11/03/23 Assessment Summary Assessment Pt is a 68 yo female with mixed urinary incontinence and fecal leakage that today appears due to PF weakness (no external tenderness). She was slow to relax her PF (in sidelie) after a contraction, mild cystocele. Her core pressure management is better with no bulging out pressure with PF contraction. Hip/ trunk mobility (IR R>L, ER L>R , trunk rot L) & R hip ext strength remains decreased. Posture changes of anterior pelvic tilt is present. Pt 's fisher lampara net PF per anal assess of not tight PF, & slow to relax was not verified via vaginal assess due to white specks in pt's vaginal canal that needs to be assessed. Pt admittedly is high tension and has difficulty relaxing in many areas of life. Physical Therapy Plan Frequency and Duration Frequency of Treatment 1x/Week Duration of treatment (weeks) 12 Plan of Care Start Date 10/27/23 Plan of Care End Date 01/16/24 Other Referrals/Consults Referrals/Consults Recommended Pt to go back to referring physician for assessment of white specks in vaginal canal region. Next Visit Focus/Plan Next Note Type Treatment Note Next Visit Plan Next: Assess response of MD visit for white specks in vaginal canal. Vemg assessmentand PF stretching ( with ex and if needed-wand) if cleared from infection, otherwise: Awareness training to relax PF, and relaxation techniques, and posture education. Education in proper methods for transfer with coordination of breathing. Manual therapy for PF stretching. HEP for PF relaxation after contractions, Hip stretch (IR R>L, ER L>R, trunk rot L), R hip ext strengthening. POC: PF tightness w/mixed urinary incontinence & Fecal incontinence with long walks after coffee.
--- NOTE | 2023-11-28 18:05 | PT.OTN ---
Current Diagnoses Urge incontinence (11/28/23) Mixed incontinence (11/28/23) Unspecified urinary incontinence (11/28/23) Physical Therapy Treatment Note PT-OP-A Visit Information Start: 10/23/23 17:13 Freq: Status: Active Protocol: Document 11/28/23 08:21 LRN (Rec: 11/28/23 09:06 LRN [id number]) Out-Patient Physical Therapy Visit Information Visit Information Visit Type Treatment Note Visit Note Pt wearing mask due to recent illness. 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 PT-OP-B Current Condition Start: 10/23/23 17:13 Freq: Status: Active Protocol: Document 10/27/23 08:15 LRN (Rec: 10/27/23 09:02 LRN [id number]) Current Condition History of Current Condition Onset Date 01/19/2020 Current Complaints Urinary leakage w/strong urge & moisture p dancing, bowel incont long walk History of Current Condition Pt reports urinary leakage that has gradually worsened over the last year or two. She is having urinary incontinence with a strong urge, and notices moisture after dancing (10 hrs/wk, 5x/ wk). She has bowel incontinence with a long walk, especially if had coffee. Urinary leakage after toileting with urinary leakage walking out of bathroom. Prior Treatments and Tests None Developmental History Developmental History Pt reports G1, P1 vaginal delivery of daughter pulled out with a vacuum, possible tearing, but not certain. Treatment Goals Patient/Caregiver Goals Pt goal is to have a HEP to take care of the problem because she feels it is a group home thing. - no longer have incontinence and urinary leakage. - no moisture with leakage. - no leakage with strong urge. 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 L hip pain that wakes her up at night. R hip pain sometimes. PT-OP-C Subjective Start: 10/23/23 17:13 Freq: Status: Active Protocol: Document 11/28/23 08:21 LRN (Rec: 11/28/23 09:06 LRN [id number]) OP-PT Subjective Patient Comments Patient Comments No fecal accidents that may be due to all the Kegels she has been doing. Hasn't been drinking coffee, drinking Spark. Has been sick, so has been drinking a lot of hot water. PT-OP-I Pelvic Floor Start: 10/23/23 17:13 Freq: Status: Active Protocol: Document 11/14/23 08:15 LRN (Rec: 11/14/23 09:05 LRN [id number]) Pelvic Floor Assessment Comments Pelvic Floor Comments Anal assessment R sidelie: Sphincter ms is 5/5. Posterior PF 1/5 (in sidelie). Vaginal PF assessment: Deferred due to small white chunks in vaginal region. Pt referred back to physician for assessment of discharge. PT-OP-J Posture/Palpation/Skin Start: 10/23/23 17:13 Freq: Status: Active Protocol: Document 10/27/23 08:15 LRN (Rec: 10/27/23 09:02 LRN [id number]) Posture Evaluation Position Standing Head/C-Spine Posture Forward Head L-Spine Posture Increased Lordosis Ankle/Foot Posture (L) Pronated,(R) Pronated Comments Posture Comments Ribs anterior from midline. PT-OP-K Range of Motion Start: 10/23/23 17:13 Freq: Status: Active Protocol: Document 10/27/23 08:15 LRN (Rec: 10/27/23 09:02 LRN [id number]) Lumbar Spine Range of Motion Lumbar Spine Active Degrees Testing Position Standing Flexion 93 Extension 20 Rotation Left 45 Rotation Right 35 Lateral Flexion Left 15 Lateral Flexion Right 12 ROM Limitations Soft Tissue Tightness Hip Goniometric Range of Motion Hip Right Passive Testing Position Supine Internal Rotation 25 External Rotation 65 Left Passive Testing Position Supine Internal Rotation 30 External Rotation 45 PT-OP-M Strength Start: 10/23/23 17:13 Freq: Status: Active Protocol: Document 10/27/23 08:15 LRN (Rec: 10/27/23 09:02 LRN [id number]) Trunk Strength Trunk Manual Muscle Testing Core Stabilization 5/5 Hip Strength Hip Manual Muscle Testing Right Extension (S1) 4+ Good+ Comments Generally 5/5, except as indicated above. Left Comments Generally 5/5 PT-OP-Q Treatments Start: 10/23/23 17:13 Freq: Status: Active Protocol: Document 11/28/23 08:21 LRN (Rec: 11/28/23 09:06 LRN [id number]) Therapeutic Exercises Supine Exercises Regular breathing w/core stab Supine Exercise Name Keeping TA tight during low level breathing Reps/Minutes 7' Comments Pt cued not to deep Breathe during this ex. 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 Reps/Minutes 3' Comments Much v cuing and phys cuing to get posterior PF to relax. Deep Breathing Supine Exercise Name Deep Breathing with TA awareness training Reps/Minutes 3' Comments 6 sec in/out breaths, w/pt cued to focus on abdominal awareness Kegel isolated Supine Exercise Name Training quick & endurance Kegel ex in isolation of substitute muscles Reps/Minutes 5' Comments Pt cued to relax abdomen, gluteals and hip AD's. Neuro Re-Education Treatment Coordination Activities Transfer training with breathe/Reverse Kegel Details Transfers sup<>sit<>stand; on exhale/relax PF or gentle reverse Kegel Comments Discussion of pressure management and how to transfer Movement Re-Education Movement Re-education Activities Standing posture training against wall and away from wall. Self-Care/Home Management Treatment Activities Self-Care/Home Management Activities Issued self care Transfers/ mobility using breathwork for pressure mgmt and PF stretch as needed. PT-OP-T Assessment and Plan Start: 10/23/23 17:13 Freq: Status: Active Protocol: Document 11/28/23 08:21 LRN (Rec: 11/28/23 09:06 LRN [id number]) Physical Therapy Assessment Goals Three Impairment Fecal incontinence with a long walk, especially if having coffee. Short Term Goal (STG) Pt will be educated in PF contractions in isolation of substitute muscles, and in proper vulvar/genital care. STG Duration 6 wks-12/08/23 Snf Goal (LTG) Improve pt's bowel voiding habits, core pressure managent , and PF strength with pt able to eliminate fecal incontinence with long walks. LTG Duration 12 wks-01/16/24 Two Impairment Urinary incontinence with a strong urge and after urinating Impairment Urinary leakage walking out of bathroom and Urinary moisture after dancing. Short Term Goal (STG) Improve PF muscle tone and strength with pt able to no longer have urinary leakage with a strong urge and while walking out of the bathroom after urinating. 11/28/23: This week hasn't had urinary leakage because she's been sick and hasn't drank coffee, but just water. Hasn' t had urgency with coming home and getting out of car. 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 LTG Duration 12 wks-01/16/24 One Impairment Pt lacks appropriate self care HEP Short Term Goal (STG) Education in proper methods for transfer with coordination of breathing and appropriate core pressure managment. STG Duration 6 wks-12/08/23 Snf Goal (LTG) Pt will be independent with a self care HEP of PF/R hip ext strengthening and hip ROM (R>L IR, L>R ER) exercises . 11/03/23: Kegels long and endurance ex. LTG Duration 12 wks-01/16/24 progressed 11/03/23 Assessment Summary Assessment 68 yo female with mixed urinary incontinence and fecal leakage due to PF weakness ( no external tenderness). Today pt is wearing a mask, inhibiting her ability to relax and deep breathe. Last week was sick allowing her to drink more fluids except not coffee; therefore she reports no fecal leakage. Improved ability for deep breathing and for being able to maintain TA tight with regular breath, and for Kegel in isolation except for TA; all requires much concentration to perform correctly. Hip flexor are very tight. Pt seeing other PT for LBP/tight hips. Physical Therapy Plan Frequency and Duration Frequency of Treatment 1x/Week Duration of treatment (weeks) 12 Plan of Care Start Date 10/27/23 Plan of Care End Date 01/16/24 Next Visit Focus/Plan Next Note Type Treatment Note Next Visit Plan Next: Educ in urge deference technique. Assess response of MD visit for white specks in vaginal canal. Vemg assessment and PF stretching ( with ex and if needed-wand) when cleared from infection, otherwise: Awareness training to relax PF, and relaxation techniques, and posture education. Education in proper methods for transfer with coordination of breathing. Manual therapy for PF stretching. HEP for PF relaxation after contractions, Hip stretch (IR R>L, ER L>R, trunk rot L), R hip ext strengthening. POC: PF tightness w/mixed urinary incontinence & Fecal incontinence with long walks after coffee.
--- NOTE | 2023-12-05 16:30 | PT.OTN ---
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 PT-OP-B Current Condition Start: 10/23/23 17:13 Freq: Status: Active Protocol: Document 10/27/23 08:15 LRN (Rec: 10/27/23 09:02 LRN [id number]) Current Condition History of Current Condition Onset Date 01/19/2020 Current Complaints Urinary leakage w/strong urge & moisture p dancing, bowel incont long walk History of Current Condition Pt reports urinary leakage that has gradually worsened over the last year or two. She is having urinary incontinence with a strong urge, and notices moisture after dancing (10 hrs/wk, 5x/ wk). She has bowel incontinence with a long walk, especially if had coffee. Urinary leakage after toileting with urinary leakage walking out of bathroom. Prior Treatments and Tests None Developmental History Developmental History Pt reports G1, P1 vaginal delivery of daughter pulled out with a vacuum, possible tearing, but not certain. Treatment Goals Patient/Caregiver Goals Pt goal is to have a HEP to take care of the problem because she feels it is a senior care thing. - no longer have incontinence and urinary leakage. - no moisture with leakage. - no leakage with strong urge. 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 L hip pain that wakes her up at night. R hip pain sometimes. PT-OP-C Subjective Start: 10/23/23 17:13 Freq: Status: Active Protocol: Document 12/05/23 08:20 LRN (Rec: 12/05/23 09:03 LRN [id number]) OP-PT Subjective Patient Comments Patient Comments No fecal accidents. States Kegels are helping, no urine accidents. Knowing how to do them right has been helpful. Patient Questionnaires Pelvic Pain and Urgency/Frequency Patient Symptom Scale Pelvic Pain Score 4 PT-OP-I Pelvic Floor Start: 10/23/23 17:13 Freq: Status: Active Protocol: Document 11/14/23 08:15 LRN (Rec: 11/14/23 09:05 LRN [id number]) Pelvic Floor Assessment Comments Pelvic Floor Comments Anal assessment R sidelie: Sphincter ms is 5/5. Posterior PF 1/5 (in sidelie). Vaginal PF assessment: Deferred due to small white chunks in vaginal region. Pt referred back to physician for assessment of discharge. PT-OP-J Posture/Palpation/Skin Start: 10/23/23 17:13 Freq: Status: Active Protocol: Document 10/27/23 08:15 LRN (Rec: 10/27/23 09:02 LRN [id number]) Posture Evaluation Position Standing Head/C-Spine Posture Forward Head L-Spine Posture Increased Lordosis Ankle/Foot Posture (L) Pronated,(R) Pronated Comments Posture Comments Ribs anterior from midline. PT-OP-K Range of Motion Start: 10/23/23 17:13 Freq: Status: Active Protocol: Document 12/05/23 08:20 LRN (Rec: 12/05/23 09:03 LRN [id number]) Hip Goniometric Range of Motion Hip Right Passive Testing Position Supine Internal Rotation 35 External Rotation 45 Left Passive Testing Position Supine Internal Rotation 30 External Rotation 45 PT-OP-M Strength Start: 10/23/23 17:13 Freq: Status: Active Protocol: Document 10/27/23 08:15 LRN (Rec: 10/27/23 09:02 LRN [id number]) Trunk Strength Trunk Manual Muscle Testing Core Stabilization 5/5 Hip Strength Hip Manual Muscle Testing Right Extension (S1) 4+ Good+ Comments Generally 5/5, except as indicated above. Left Comments Generally 5/5 PT-OP-Q Treatments Start: 10/23/23 17:13 Freq: Status: Active Protocol: Document 12/05/23 08:20 LRN (Rec: 12/05/23 09:03 N [id number]) Therapeutic Exercises Supine Exercises Iliopsoas stretch Supine Exercise Name Verbal review of ex on HEP handout Reps/Minutes 1' Lateral Hip stretch Side bilateral Reps/Minutes 6' Hip ER stretch Supine Exercise Name Fig 4, Mostly L hip Side bilateral Reps/Minutes 6' Piriformis stretch Side bilateral Reps/Minutes 6' Kegel isolated Supine Exercise Name Training quick & endurance Kegel ex in isolation of substitute muscles Reps/Minutes 5' Comments Pt cued to relax abdomen, gluteals and hip AD's. Sitting Exercises Piriformis stretch Side left Reps/Minutes 4' Standing Exercises Wall posturing Standing Exercise Name Posture traning standing against wall and review away from wall Reps/Minutes 4' Hip Ext Side right Reps/Minutes 3' Comments Extra time taken for training. Neuro Re-Education Treatment Coordination Activities Transfer training with breathe/Reverse Kegel Details Reviewed Reps/Duration 3' Self-Care/Home Management Treatment Activities Self-Care/Home Management Activities Issued & reviewed HEP: Hip stretches: Piriformis, lateral hip stretch, Fig 4, Hip flexor-Bear test position stretch; Prone & Stand hip ext strengthening. Handout issued for genital/ vulvar care. PT-OP-T Assessment and Plan Start: 10/23/23 17:13 Freq: Status: Active Protocol: Document 12/05/23 08:20 LRN (Rec: 12/05/23 09:03 [facility] [id number]) Physical Therapy Assessment Goals Three Impairment Fecal incontinence with a long walk, especially if having coffee. Short Term Goal (STG) Pt will be educated in PF contractions in isolation of substitute muscles, and in proper vulvar/genital care. 10/27/23: Pt educated in isolated PF contraction from substitute ms 12/05/23: Pt education in proper vulvar/genital care with handout issued STG Duration 6 wks-12/08/23 (12/05/23: MET GOAL) Senior Living Goal (LTG) Improve pt's bowel voiding habits, core pressure managent , and PF strength with pt able to eliminate fecal incontinence with long walks. 12/05/23: Pt managing core pressure as trained. No fecal leakage with long walks. Bowel habits-regular. LTG Duration 12 wks-01/16/24 (12/05/23: MET GOAL) Two Impairment Urinary incontinence with a strong urge and after urinating Impairment Urinary leakage walking out of bathroom and Urinary moisture after dancing. Short Term Goal (STG) Improve PF muscle tone and strength with pt able to no longer have urinary leakage with a strong urge and while walking out of the bathroom after urinating. 11/28/23: This week hasn't had urinary leakage because she's been sick and hasn't drank coffee, but just water. Hasn' t had urgency with coming home and getting out of car. 12/05/23: One time leakage coming out of bathroom. No strong urges anymore that she can't control urine. OK'd to DC at this level per discussion with patient. 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 12/05/23: Pt thinks she is not leaking with dance, but is moisture from sweat. No change in the sweat/moisture feeling. Good fluid management report with no longer having strong urge to urinate and able to make it to BR w/o leaking. LTG Duration 12 wks-01/16/24 (12/05/23: MET GOAL) One Impairment Pt lacks appropriate self care HEP Short Term Goal (STG) Education in proper methods for transfer with coordination of breathing and appropriate core pressure managment. 12/05/23: Reviewed transfer method coordinating breath with mvmt to manage core pressure as previously educated and handout issued () STG Duration 6 wks-12/08/23 (12/05/23: MET GOAL) Senior Living Goal (LTG) Pt will be independent with a self care HEP of PF/R hip ext strengthening and hip ROM (R>L IR, L>R ER) exercises . 11/03/23: Nereyda long and endurance ex. 12/05/23: HEP issued: R hip ext strengthening (prone/stand ) and hip ROM stretching (as set above) LTG Duration 12 wks-01/16/24 (12/05/23: MET GOAL) Assessment Summary Assessment Pt is a 68 yo female being seen for mixed urinary incontinence and fecal leakage due to PF weakness. Pt has completed her physical therapy program to her satisfaction and has met all her goals. She feel confident to continue strengthening on her own home ex program. Pt is being discharged to her [facility] today. Physical Therapy Plan Discharge Physical Therapy Discharge Reasons Goals Met Discharge Comments Thank you for your referral.
== END 2023-12-24 11:38 ==
LOC: PHYS 08:15
PROVIDERS: Family Provider Internal Medicine; PCP Internal Medicine; Referring Provider Internal Medicine; Visit Provider Internal Medicine
DX: N39.41 Urge incontinence (principal); N39.46 Mixed incontinence
CPT/HCPCS: 97110; 97112; 97140; 97162; 97530

== ENCOUNTER → 2024-08-24 12:51 | Outpatient (CLI) | payer MEDICARE, OTHER, SELFPAY ==
--- NOTE | 2024-08-24 12:52 | DI.MG.S_ITS ---
MM screening mammo BI: 08/24/2024. BI-RADS: 1 CLINICAL: 69-year old female for bilateral screening mammogram. Tyrer-Cuzick lifetime risk of 8.9%. No personal or first-degree family history of breast cancer. Current reported family history of breast cancer: maternal uncle's daughter. PRIOR EXAMS 08/13/2023, 04/26/2021, 04/08/2020, 01/07/2019, 01/06/2018, 05/13/2016, 02/21/2015. MAMMOGRAPHY TECHNIQUE: 2D and 3D (tomosynthesis) digital mammographic views obtained, with additional images as needed for full coverage. Current study was also evaluated with a Computer Aided Detection (CAD) system. DENSITY C. The breasts are heterogeneously dense, which may obscure small masses. MAMMOGRAPHY FINDINGS Bilateral: No suspicious mass, asymmetry, microcalcification, or other abnormality seen. IMPRESSION: * No evidence of malignancy. RECOMMENDATIONS Bilateral * Annual screening mammography. OVERALL ASSESSMENT CATEGORY BI-RADS-1: Negative. The [employer] recommends annual screening mammography beginning at age 40 for women with average risk of breast cancer. ELECTRONICALLY SIGNED: Neel Durham M.D. on 08/24/2024 at 02:14:54 PM Interpreting Station ID: [id number]
== END ==
PROVIDERS: Family Provider Internal Medicine; PCP Internal Medicine; Referring Provider Internal Medicine; Visit Provider Internal Medicine
DX: Z12.31 Encounter for screening mammogram for malignant neoplasm of breast (principal); Z80.3 Family history of malignant neoplasm of breast; R92.333 Mammographic heterogeneous density, bilateral breasts
CPT/HCPCS: 77063; 77067